=== PATIENT | male | born 1990 | race Caucasian/White ===

== ENCOUNTER 2016-08-02 19:26 | Emergency (ER) | payer BC ==
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
[2016-08-02] MEDS ORDERED: HYDROCOD/APAP 5/325 PREPACK#6 BTL TAKEHOME ONE ×2 (20:37→20:54)
[2016-08-02 20:54] VITALS: BP 132/75; PULSE 88; RESP 16; TEMP 98.2; O2SAT 95
== END 2016-08-02 20:53 | disposition home or self-care (01) ==
DX: S42.032A Displaced fracture of lateral end of left clavicle, initial encounter for closed fracture (principal); V18.0XXA Pedal cycle driver injured in noncollision transport accident in nontraffic accident, initial encounter; Y99.8 Other external cause status; Y93.89 Activity, other specified
CPT/HCPCS: A4565

== ENCOUNTER → 2016-09-21 | Outpatient (CLI) | payer BC | LOC: BMCIMAGING 10:50 | PROVIDERS: ATTEND Physician Assistant | DX: S42.022D Displaced fracture of shaft of left clavicle, subsequent encounter for fracture with routine healing (principal) ==

== ENCOUNTER → 2016-10-19 | Outpatient (CLI) | payer BC | LOC: BMCIMAGING 13:23 | PROVIDERS: ATTEND Physician Assistant | DX: S42.022D Displaced fracture of shaft of left clavicle, subsequent encounter for fracture with routine healing (principal) ==